=== PATIENT | male | born 1950 | race Caucasian/White ===

== ENCOUNTER 2019-06-04 14:45 | Outpatient (CLI) | payer MEDICARE, SELFPAY ==
--- NOTE | 2019-06-04 11:00 | DI.RAD_ITS ---
SYMPTOM/DIAGNOSIS: CALCULUS OF KIDNEY, N20.0, F/U KUB: Comparison is made with 05/06/18. There are calcifications seen overlying the left renal shadow. This may represent nephrolithiasis. No other urinary tract calculi are identified. The lung bases are clear. There are surgical clips in the right upper quadrant of the abdomen suggesting prior cholecystectomy. Degenerative changes are seen in the hips and lumbar spine. IMPRESSION: Calcifications overlying the left renal shadow which may represent nephrolithiasis.
== END 2019-06-04 15:05 ==
PROVIDERS: Visit Provider Urology
DX: N20.0 Calculus of kidney (principal)
CPT/HCPCS: 99213; 74018

== ENCOUNTER 2019-07-24 11:16 | Outpatient (CLI) | payer MEDICARE, SELFPAY ==
[2019-07-24 11:54] LABS: Bilirubin Negative (Negative); Blood Moderate (Negative); Clarity Sl Cloudy (Clear); Glucose 100 mg/dL (Negative); Ketones Trace mg/dL (Negative); Leukocyte Esterase Moderate (Negative); Nitrite Negative (Negative); Urobilinogen 0.2 EU/dL (Up TO 0.2)
[2019-07-24 12:29] LABS: Epithelial Cells Few HPF (Negative); RBC >50 (0-2); WBC >50 HPF (0-5)
[2019-07-24 12:30] LABS: Bacteria Moderate HPF (Negative); C & S Indicated? Yes; Casts Negative LPF (Negative); Crystals Negative HPF (Negative); Mucus Negative (Negative)
== END 2019-07-24 11:36 ==
PROVIDERS: PCP Internal Medicine; Visit Provider Urology
DX: R31.9 Hematuria, unspecified (principal)
CPT/HCPCS: 87077; 81003; 81015; 87086; 87186

== ENCOUNTER → 2019-07-27 10:33 | Outpatient (BNVA) | payer MEDICARE, SELFPAY | PROVIDERS: PCP Internal Medicine; Visit Provider Nurse Practitioner Gerontology | DX: N39.0 Urinary tract infection, site not specified (principal); B96.29 Other Escherichia coli [E. coli] as the cause of diseases classified elsewhere | CPT/HCPCS: 99213 ==

== ENCOUNTER 2019-08-12 13:13 | Outpatient (CLI) | payer MEDICARE, SELFPAY | END 2019-08-12 13:33 | PROVIDERS: PCP Internal Medicine; Visit Provider Urology | DX: R39.15 Urgency of urination (principal) | CPT/HCPCS: 87086 ==

== ENCOUNTER 2019-08-26 15:23 | Outpatient (REF) | payer MEDICARE, SELFPAY | END 2019-08-26 15:43 | LOC: LBN 15:23 | PROVIDERS: PCP Internal Medicine; Visit Provider Urology | DX: R31.9 Hematuria, unspecified (principal) | CPT/HCPCS: 87086 ==

== ENCOUNTER 2019-09-07 02:23 | Outpatient (CLI) | payer MEDICARE, SELFPAY ==
--- NOTE | 2019-09-07 14:53 | DI.US_ITS ---
EXAM: US RENAL CLINICAL HISTORY: FLANK PAIN IN A PT WITH HX OF STONES, N20.0, CALCULUS OF KIDNEY, ABDOMINAL PAIN, R 10.9 TECHNIQUE: Ultrasound performed using standard protocol. COMPARISON: RENAL COLIC WO CONTRAST from 11/29/2015 XR ABDOMEN FLAT PLATE from 06/04/2019 FINDINGS: The right kidney measures 10.2 cm in length. No right-sided renal calculi or hydronephrosis is seen. The parenchymal thickness and echogenicity appear normal. There are 2 small cysts seen in the left kidney. There is a 4 millimeter nonobstructing stone seen near the mid left kidney. The prevoid rubén dder volume measures 351 cc. The postvoid residual is 6 cc. The ureteral jets were not visualized. The prostate was not. IMPRESSION: A 4 millimeter nonobstructing stone in the mid left kidney. Small left renal cysts. No evidence of hydronephrosis.
== END 2019-09-07 02:43 ==
PROVIDERS: PCP Internal Medicine; Visit Provider Nurse Practitioner Gerontology
DX: N20.0 Calculus of kidney (principal); R10.32 Left lower quadrant pain; N28.1 Cyst of kidney, acquired
CPT/HCPCS: 76770

== ENCOUNTER 2019-09-08 10:10 | Outpatient (REF) | payer MEDICARE, SELFPAY | END 2019-09-08 10:30 | LOC: LBN 10:10 | PROVIDERS: PCP Internal Medicine; Visit Provider Urology | DX: R30.0 Dysuria (principal) | CPT/HCPCS: 87077; 87086; 87186 ==

== ENCOUNTER 2019-09-23 13:47 | Outpatient (REF) | payer MEDICARE, SELFPAY | END 2019-09-23 14:07 | LOC: LBN 13:47 | PROVIDERS: PCP Internal Medicine; Visit Provider Urology | DX: R30.0 Dysuria (principal) | CPT/HCPCS: 87086 ==

== ENCOUNTER 2019-09-30 13:57 | Outpatient (REF) | payer MEDICARE, SELFPAY | END 2019-09-30 14:17 | LOC: LBN 13:57 | PROVIDERS: PCP Internal Medicine; Visit Provider Physician Assistant Medical | DX: N39.0 Urinary tract infection, site not specified (principal) | CPT/HCPCS: 87077; 87086; 87186 ==

== ENCOUNTER 2019-11-11 11:03 | Outpatient (CLI) | payer OTHER, SELFPAY ==
[2019-11-11 11:39] LABS: Bilirubin Negative (Negative); Blood Negative (Negative); Clarity Clear (Clear); Glucose 500 mg/dL (Negative); Ketones Trace mg/dL (Negative); Leukocyte Esterase Negative (Negative); Nitrite Negative (Negative); Specific Gravity >= 1.030 (1.005-1.025); Urobilinogen 0.2 EU/dL (Up TO 0.2)
== END 2019-11-11 11:23 ==
PROVIDERS: PCP Internal Medicine; Visit Provider Urology
DX: N39.0 Urinary tract infection, site not specified (principal)
CPT/HCPCS: 81003; 87086

== ENCOUNTER 2019-12-07 14:55 | Outpatient (REF) | payer OTHER, SELFPAY | END 2019-12-07 15:15 | LOC: LBN 14:55 | PROVIDERS: PCP Nurse Practitioner Gerontology; Visit Provider Nurse Practitioner Gerontology | DX: R31.0 Gross hematuria (principal) | CPT/HCPCS: 87077; 87086; 87186 ==

== ENCOUNTER 2019-12-28 11:53 | Outpatient (CLI) | payer OTHER, SELFPAY | END 2019-12-28 12:13 | PROVIDERS: PCP Nurse Practitioner Gerontology; Visit Provider Urology | DX: N39.0 Urinary tract infection, site not specified (principal) | CPT/HCPCS: 87086 ==

== ENCOUNTER 2020-06-27 01:17 | Outpatient (CLI) | payer OTHER, SELFPAY ==
--- NOTE | 2020-06-27 09:31 | DI.RAD_ITS ---
EXAM: XR ABDOMEN FLAT PLATE CLINICAL HISTORY: Monitoring renal stones,Z87.442,PERSONAL H/O, [id number] TECHNIQUE: COMPARISON: CR XR ABDOMEN FLAT PLATE from 06/04/2019 FINDINGS: Two views were obtained. Vascular clips noted in right upper quadrant consistent with prior cholecys tectomy. Faint calculi are noted overlying the lower pole of the left kidney, maximal diameter about 6 millimeters. No additional urinary tract calcification seen. No gross interval change from radio graphs May 2019 allowing for differences in technique. IMPRESSION: Presumed left renal calculi. No other significant findings. RADIATION DOSE DELIVERED: Total DLP
== END 2020-06-27 01:37 ==
PROVIDERS: PCP Internal Medicine; Visit Provider Nurse Practitioner Gerontology
DX: N20.0 Calculus of kidney (principal); Z87.442 Personal history of urinary calculi
CPT/HCPCS: 74018

== ENCOUNTER 2020-08-08 14:18 | Outpatient (CLI) | payer MEDICARE, SELFPAY ==
[2020-08-10 19:25] LABS: Patient Race White; SARS-CoV-2 RNA Undetected (Undetected); SARS-CoV-2 Specimen Source Nasal
== END 2020-08-08 14:38 ==
PROVIDERS: PCP Internal Medicine; Visit Provider Family Medicine
DX: Z11.59 Encounter for screening for other viral diseases (principal)
CPT/HCPCS: U0003

== ENCOUNTER 2020-10-18 08:46 | Outpatient (CLI) | payer MEDICARE, SELFPAY ==
[2020-10-19 19:30] LABS: COVID-19 RT-PCR UVMMC Result Negative (Negative)
== END 2020-10-18 09:06 ==
PROVIDERS: PCP Internal Medicine; Visit Provider Internal Medicine
DX: R05 Cough (principal)
CPT/HCPCS: U0003

== ENCOUNTER → 2021-06-26 02:39 | Outpatient (CLI) | payer MEDICARE, SELFPAY ==
--- NOTE | 2021-06-26 07:30 | DI.RAD_ITS ---
Exam(s) XR ABDOMEN FLAT PLATE EXAM: 2D digital imaging was performed. CLINICAL HISTORY: Monitoring L. renal calculi, Z87.462. COMPARISON: CT RENAL COLIC WO CONTRAST from 11/29/2015 CT RENAL COLIC WO CONTRAST from 11/29/2015 CR XR ABDOMEN FLAT PLATE from 06/27/2020 TECHNIQUE: Supine views of the abdomen performed. FINDINGS: BOWEL GAS PATTERN: Nondistended. CALCIFICATIONS: 3 x 5 millimeter stone lower pole left kidney. OSSEOUS STRUCTURES: Normal for age. OTHER FINDINGS: Status post cholecystectomy. No organomegaly. IMPRESSION: 1. Nonobstructive bowel gas pattern. 2. 3 x 5 millimeter stone lower pole left kidney. DATA REPOSITORY: RADIATION DOSE DELIVERED:
== END ==
PROVIDERS: PCP Internal Medicine; Visit Provider Nurse Practitioner Gerontology
DX: Z87.442 Personal history of urinary calculi (principal); N20.0 Calculus of kidney
CPT/HCPCS: 74018

== ENCOUNTER 2022-01-04 16:08 | Outpatient (REF) | payer MEDICARE, SELFPAY ==
[2022-01-04 21:34] LABS: Abs Immature Grans 0.05 10^3/uL (0.0-0.06); Absolute Basophil Count 0.06 10^3/uL (0.0-0.2); Absolute Eosinophil Count 0.24 10^3/uL (0.0-0.7); Absolute Lymphocyte Count 2.41 10^3/uL (1.2-3.4); Absolute Monocyte Count 0.78 10^3/uL (0.1-0.8); Absolute Neutrophil Count 6.51 10^3/uL (1.2-6.7); Basophils % 0.6; Eosinophils % 2.4; HCT 46.5 % (40.0-50.0); Immature Grans % 0.5; MCH 31.8 pg (27.0-33.0); MCHC 34.4 % (32.0-36.0); MCV 92.4 fL (80-95); MPV 9.9 fL (8.0-11.0); Monocytes % 7.8; Neutrophils % 64.7; Nucleated RBC 0 %; Platelet Count 321 10^3/uL (130-400); RBC 5.03 10^6/uL (4.36-5.78); RDW 12.4 % (11.8-14.1); WBC 10.05 10^3/uL (4.4-10.8)
[2022-01-04 21:40] LABS: ALT 65 U/L (16-63); AST 20 U/L (15-37); Albumin 3.9 g/dL (3.4-5.0); Alkaline Phosphatase 54 U/L (46-116); Anion Gap 10.3 mmol/L (3-11); BUN 16 mg/dL (7-18); Bilirubin, Total 0.5 mg/dL (0.2-1.0); CO2 25.7 mmol/L (21.0-32.0); Calcium 9.2 mg/dL (8.5-10.1); Chloride 100 mmol/L (98-107); Glucose 190 mg/dL (74-106); Potassium 4.6 mmol/L (3.5-5.1); Sodium 136 mmol/L (136-145); Total Protein 7.3 g/dL (6.4-8.2)
[2022-01-04 22:13] LABS: C Diff PCR Negative (Negative)
[2022-01-06 11:15] LABS: Campylobacter PCR Negative (Negative); Salmonella PCR Negative (Negative); Shiga Toxin PCR Negative (Negative); Shigella/Enteroinvasive Ecoli Negative (Negative)
[2022-01-06 13:44] LABS: COVID-19 RT-PCR UVMMC Result Negative (Negative)
== END 2022-01-04 16:09 | disposition home or self-care (01) ==
LOC: LBN 16:08
PROVIDERS: PCP Internal Medicine; Visit Provider Physician Assistant Medical
DX: R19.7 Diarrhea, unspecified (principal); Z20.822 Contact with and (suspected) exposure to COVID-19
CPT/HCPCS: 80053; 87329; 87493; 87505; U0003; 83630; 85025; 87177

== ENCOUNTER → 2022-02-08 15:05 | Outpatient (BNVA) | payer MEDICARE, SELFPAY | PROVIDERS: PCP Internal Medicine; Referring Provider Internal Medicine; Visit Provider Physical Therapy Assistant | DX: Z12.11 Encounter for screening for malignant neoplasm of colon (principal); Z80.0 Family history of malignant neoplasm of digestive organs ==

== ENCOUNTER 2022-02-23 06:59 | Day surgery (SDC) | payer OTHER, SELFPAY ==
--- NOTE | 2022-02-22 16:19 | W.COLOREPORT ---
Colonoscopy Report Date of procedure: 02/23/22 Pre-op diagnosis general: adenomatous polyps Post-op diagnosis procedure note: other (Adenomatous polyps/diverticula) Surgeon: Maria Luisa Sandhu Anesthesia Type: Other (The scope was done with no sedation at patient's request) Estimated blood loss (mL): 1 Pathology: other Complications: None Disposition: same day Prep: Miralax/Dulcolax Retraction Time: 9 Procedure Description: After informed consent was obtained the patient was taken to the procedure room and placed in a left decubitous position. Monitors were applied and a time out was done. The patients name, date of , procedure, allergies to medications and metal in their body was reviewed. Patient did not want sedation, and the procedure was done with no medications. Anesthesia was still present in the room to monitor airway and vital signs. External exam was normal. Internal exam revealed a normal sphincter tone and no palpable masses. The prostate grossly normal The scope was then introduced and retrofelexed. No internal hemorrhoids were identified. The scope was then advanced to the cecum without difficulty. The TI and appendiceal orifice were identified. The prep was the BPS 3 in all segments for total of 9. The scope was then slowly retracted over 10 minutes back into the rectum. he had 2 small, 5mm flat polyps, 1 at 30 cm and 1 at 50 cm. These are removed with a cold biting forcep. All specimen is retrieved and no bleeding is noted. He has minor diverticular disease confined to the sigmoid colon, with no signs of active bleeding or infection. The mucosa is pink and healthy with a normal vascular pattern. Was removed and the patient was woken up and taken back to Same day surgery in stable condition. The patient tolerated the procedure well and there were no immediate complications. Follow up: We will see what the path report shows, and if we want him to repeat do colonoscopy again, unless he develop changes in bowel habits or other new gastrointestinal complaints.
--- NOTE | 2022-02-22 16:20 | PDOC.DSDIS_ITS ---
Discharge Plan Disposition Patient Disposition: HOME Condition: Good Discharge Details Reason For Visit: Colon scope Attending Provider: Maria Luisa Sandhu Primary Care Provider: Pravin Hunter Home Meds and New Rx's Prescriptions: Continued Lantus Solostar U-100 Insulin 100 unit/mL (3 mL) insulin pen 42 unit subcut DAILY multivitamin 1 EACH tablet 1 ea PO DAILY (DME) blood-glucose meter [OneTouch UltraMini] 1 EACH kit 1 ea Miscellaneous BID Qty: 1 Rx Instructions: 250.00 to maintain A1C below 7.0 (DME) lancets [OneTouch SureSoft Lancing Dev] 1 EACH misc 1 ea Miscellaneous DAILY Qty: 1 (DME) OneTouch Ultra Test 1 EACH strip 1 ea Miscellaneous DAILY Qty: 100 Rx Instructions: For DM E11.9 to maintain A1C <7 aspirin 81 MG tablet,chewable 81 mg PO DAILY glipizide 5 mg tablet 5 mg PO BID atorvastatin 20 mg tablet 20 mg PO DAILY losartan 50 mg tablet 50 mg PO DAILY pantoprazole 40 mg tablet,delayed release (DR/EC) 40 mg PO DAILY dorzolamide-timolol 22.3-6.8 mg/mL drops 1 drp ophthalmic (eye) Q12H triamcinolone acetonide 0.1 % cream 1 applic topical DAILY camphor-menthol 5.1-5.1 % cream 1 applic topical QHS PRN acetaminophen [Tylenol] 325 MG tablet 1 - 3 tab PO TID PRN ibuprofen 200 MG tablet 200 - 600 mg PO TID PRN Label Comments: 12/07/15 Pt states taking TID. PG metformin 1,000 mg tablet,ER sheeba.retention 24 hr 1,000 mg PO DAILY hydrocortisone 30 GM cream 1 gm Topical BID 7 Days Qty: 1 0RF Rx Instructions: Apply cream to itchy areas of hands twice daily for 1 week. Ozempic 0.25 mg or 0.5 mg(2 mg/1.5 mL) pen injector 0.25 - 0.5 mg SUBCUT DIRECTED Label Comments: once weekly injection Discontinued polyethylene glycol 3350 17 gram/dose powder 238 g PO ONCE Qty: 238 0RF Rx Instructions: take per colonoscopy instructions bisacodyl [Dulcolax (bisacodyl)] 5 mg tablet,delayed release (DR/EC) 5 mg PO ONCE Qty: 4 0RF Rx Instructions: take per colonoscopy instructions Discharge Instructions Additional Instructions: DSU Colonoscopy Post- Op Instructions Instructions for Everyone who is given Anesthesia: For your safety, please do the following for the next twenty-four (24) hours: *Do Not operate a motor vehicle (car, truck, motorcycle, etc.) *Do Not drink alcoholic beverages or use any recreational drugs for the first 24 hours or while taking pain medications. The medications in your body may have a reaction that can be dangerous. *Do Not make any important decisions or sign any important papers. Findings:-Diverticula-sure you are moving your bowels on a regular basis and not straining to go to the bathroom, Polyps- Follow up: My office will send a letter in 2 to 3 weeks time detailing as to what type of polyps they are and if we want you to repeat the colonoscopy again. 1. No lifting over 20 pounds or strenuous activity for the first 24 hours after your procedure. After 24 hours there are no restrictions on your activity but you may feel fatigued for a few days. 2. After you arrive home you may have a light meal and return to your normal diet as you can tolerate it without feeling sick to your stomach. 3. You may have a bloated, gaseous feeling in your belly (abdomen) after a colonoscopy. Passing gas and belching will help. Walking or lying down on your left side with your knees flexed may relieve the discomfort. Call the office at [phone] (Office) or [phone] (Hospital) right away if you notice any of the following: a.Vomiting of blood or ?coffee ground stools?. b.Rectal bleeding 1Tbsp, blood clots or continuous bleeding. c.Severe belly (abdominal) pain. d.A hard distended belly (abdomen) and an inability to pass gas. 4. Please don?t expect to have a normal BM (bowel movement) for 2-3 days after your procedure. 5. If there are questions regarding the findings of your procedure, please contact your doctor 6. If you are unable to contact your doctor with a problem, contact the hospital at [phone]. 7. Continue all your regular medications unless directed otherwise. I understand the above instructions and have no questions. Signature of Patient or Adult Escort Name of Responsible Adult Escort Signature of Nurse Date/Time Activity:: See above Diet:: See above Discharge Orders Discharge Orders: Discharge Order (Routine); Ordered 02/22/22 Ordered By: Maria Luisa Sandhu
--- NOTE | 2022-02-23 | BOWEL_PTH ---
PATIENT: Brandon Peña I LOC: [facility] U#:[id number] AGE/SX: 71/M ROOM: RE02/23/[address]: Maria Luisa Sandhu : 1950 BED: DIS: 02/23/2022 SPEC #: [id number] RECD: 02/23/22 09:52 STATUS: EMORY REQ #: [id number] BRANDON: 02/23/22 00:[address]: Maria Luisa Sandhu DEPT: Surgical Specimen RECD BY: Jaimie Montelongo ENTERED: 02/23/22 09:53 SP TYPE: Bowel OTHR DR: Pravin Hunter Tissues: 1 - BIOPSY BOWEL 2 - BIOPSY BOWEL Procedures: GROSS AND MICRO LEVEL 4 Comments: [id number]
[2022-02-23 07:35] VITALS: BP 141/73; PULSE 74; RESP 15; TEMP 36.6; O2SAT 97
[2022-02-23] MEDS: Lactated Ringers 1,000 ML 80 ML IV (07:53)
--- NOTE | 2022-02-23 08:47 | W.ANESPRE ---
General Info Date of Service Date Performed: 02/23/22 Height: 5 ft 6 in Weight: 88.9 kg Body Mass Index (BMI): 31.6 Surgical Procedure: Operation Date: 02/23/22 08:50 Proposed Procedure Side Surgeon washington Sandhu, DO Meds Allergies and Home Medications Allergies Allergy/AdvReac Type Severity Reaction Status Date / Time Penicillins Allergy Severe ANAPHYLAXIS, Verified 02/23/22 07:31 HIVES WHITE FACED HORNET Allergy Unknown SKIN Uncoded 02/23/22 07:31 POISON REACTION Home Medication Medication Instructions Recorded multivitamin 1 ea PO DAILY 01/29/13 blood-glucose meter (Meteo-LogicTouch ##1 05/21/14 UltraMini kit) acetaminophen 325 mg tablet 1 - 3 tab PO TID PRN 12/07/15 (Tylenol) ibuprofen 200 mg tablet 200 - 600 mg PO TID PRN 12/07/15 lancets (Meteo-LogicTouch SureSoft Lancing ##1 07/03/16 Devices) blood sugar diagnostic (OneTouch #100 strips 01/15/17 Ultra Test strips) aspirin 81 mg chewable tablet 81 mg PO DAILY 04/23/17 hydrocortisone 2.5 % topical cream 1 gm topical BID 7 days #1 tube 04/10/18 atorvastatin 20 mg tablet 20 mg PO DAILY 05/31/21 glipizide 5 mg tablet 5 mg PO BID 05/31/21 losartan 50 mg tablet 50 mg PO DAILY 05/31/21 camphor-menthol 5.1 %-5.1 % 1 applic topical QHS PRN 06/05/21 topical cream dorzolamide 22.3 mg-timolol 6.8 1 drp ophthalmic (eye) Q12H 06/05/21 mg/mL eye drops pantoprazole 40 mg tablet,delayed 40 mg PO DAILY 06/05/21 release triamcinolone acetonide 0.1 % 1 applic topical DAILY 06/05/21 topical cream metformin 1,000 mg 24 hr 1,000 mg PO DAILY 06/26/21 tablet,extended release insulin glargine 100 unit/mL (3 42 unit subcut DAILY 02/08/22 mL) subcutaneous pen (Lantus Solostar U-100 Insulin) semaglutide 0.25 mg or 0.5 mg (2 0.25 - 0.5 mg subcut DIRECTED 02/21/22 mg/1.5 mL) subcutaneous pen injector (Ozempic) Current Visit Medications: Current Medications Generic Name Dose Route Start Last Admin Trade Name Freq PRN Reason Stop Dose Admin Ringer's Solution 1,000 mls @ 80 mls/hr 02/23/22 06:00 02/23/22 07:53 IV 03/24/22 23:59 80 mls/hr INFUSION PHILLIP Administration IV Miscellaneous Supplies 1 each 02/23/22 06:00 Iv Access IV 03/24/22 23:59 DIRECTED PHILLIP Ondansetron HCl 4 mg 02/22/22 16:18 Ondansetron 4 Mg/2 Ml Vial IVP Q4H PRN PRN Nausea / Vomiting Sodium Chloride 0 ml 02/23/22 06:00 Normal Saline Flush 10 Ml Syr IV 03/24/22 23:59 PRN PRN Sodium Chloride 0 ml 02/23/22 06:00 Normal Saline 10 Ml Vial IJ 03/24/22 23:59 DIRECTED PRN Sterile Water 0 ml 02/23/22 06:00 Water,Injection,Sterile 10 Ml Vial IJ 03/24/22 23:59 DIRECTED PRN PFSH Active Problems Active Problems: Problem Status Onset Code Benign neoplasm of colon 04/21/12 D12.6 Type 2 diabetes mellitus 05/11/14 E11.9 Rawson cardiac risk >20% in next 10 years 02/29/16 Z91.89 Severe obesity (BMI 35.0-39.9) with comorbidity 02/29/16 E66.01 Sleep apnea 02/11/14 G47.30 Medical History Medical History Acute gastritis Chest pain Pt. states he wore a monitor for 2 weeks, and found nothing Chronic nonalcoholic liver disease (01/22/12) Fatty liver, incidental finding on CT 09/2011 Hearing loss (01/22/12) B/L hearing aids Hyperlipidemia Increased glucose level (05/11/14) Kidney stone (01/22/12) 2013: Calcium oxalate nephrolithiasis s/p R URS/laser litho Dr. Pichardo 2014: 7mm L kidney stone; stable 2015: 7mm L kidney stone; stable Nonalcoholic steatohepatitis Obesity, unspecified (03/25/12) Tremor Medical History Comments:: Declines anesthesia for this procedure Surgical History Surgical History Cholecystectomy Colonoscopy (05/30/15) Cystoscopy (12/08/15) dr. menchaca H/O vasectomy Rotator Cuff Repair (02/12/18) NEER ACROMIOPLASTY/EXCISION DISTAL CLAVICLE/DR. MCKEON Ureteroscopy, EHL, or Laser Lithotripsy (12/08/15) Tobacco Smoking/Tobacco Use Status: Never Alcohol Alcohol Intake: current Alcohol intake frequency: holidays/special occasions only Substance Use Substance use: Never Substance use type: does not use Vital Signs and Lab Results Vital Signs Most Recent Vital Signs in EMR: Most Recent Vital Signs Temp Pulse Resp BP Pulse Ox 36.6 C 74 15 141/73 H 97 02/23/22 07:35 02/23/22 07:35 02/23/22 07:35 02/23/22 07:35 02/23/22 07:35 Point of Care Results Point of Care Results: Finger Stick Blood Glucose 158 02/23/22 07:46 Lab Results Blood Type / Crossmatch: No Data to Display Complete Blood Count: No Data to Display Complete Metabolic Panel: No Data to Display Liver Function Panel: No Data to Display Coagulation Panel: No Data to Display Cardiac Panel: No Data to Display Arterial Blood Gas: No Data to Display Venous Blood Gas: No Data to Display Pancreas Panel: No Data to Display Thyroid Panel: No Data to Display Infectious Disease: No Data to Display Blood Cultures: No Data to Display Toxicology Panel: No Data to Display Anesthesia Assessment and Plan Anesthesia History Personal History: No History of Anesthesia Complications Family History: No Family History of Anesthesia Complications Exercise Tolerance Exercise Tolerance: Metabolic Equivalents>4 Pertinent Negatives Pertinent Negatives: No Symptoms of GERD, No Major Cardiovascular Symptoms or Complaints (Negative stress test 2016), No Major Pulmonary Symptoms or Complaints and No History of CVA/TIA Cardiac & Pulmonary Exam Cardiac Exam: Normal S1/S2 Heart Sounds Pulmonary Exam: Clear Bilateral Breath Sounds Implantable Cardiac Device Does patient have a Pacemaker or an ICD?: No Airway Exam Known Difficult Airway: No Mallampati Class: 1 Mouth Opening: Normal (> 3cm) Thyromental Distance: Greater than 3 cm Neck Range of Motion: Full ROM Neck Circumference: Normal Teeth Condition: Normal Dentition ASA Classification ASA Score: ASA 2 Emergency Case?: No NPO Status NPO Status: NPO Clears >2 hours, Solids >8 hours Anesthesia Plan Resuscitation Status: Full Code Anesthesia Technique: General Anesthesia Airway Planned: Natural Airway Monitors Used: Standard Monitors
[2022-02-23 08:50] VITALS: BMI 31.6
[2022-02-23 09:26] VITALS: BP 141/70; PULSE 74; RESP 18; TEMP 36.5; O2SAT 98
--- NOTE | 2022-02-23 09:26 | W.ANESPOSTOP ---
Postoperative Evaluation Date, Time and Location Date Performed: 02/23/22 Time Performed: 08:26 Patient Location: Day Surgery Unit Vital Signs Most Recent Imported Vital Signs: Most Recent Vital Signs Temp Pulse Resp BP Pulse Ox 36.6 C 74 15 141/73 H 97 02/23/22 07:35 02/23/22 07:35 02/23/22 07:35 02/23/22 07:35 02/23/22 07:35 Most Recent Manually Entered Vital Signs: Adult Blood Pressure: 141/70 Heart Rate: 74 Respirations: 10 Oxygen Saturation (%): 97 Temperature (C): 36.4 C Pain Score (0-10 Scale): 0 Pain Score Most Recent Pain Score: Most Recent Pain Score Pain Level 0 02/23/22 07:35 Assessment Mental Status: Awake (Alert & Oriented to Patient Baseline) Airway and Respiratory Function: Patent airway with normal (patient baseline) respiratory exam Cardiovascular Function: Hemodynamically Stable Hydration Status: Adequately Hydrated Nausea & Vomiting: No Nausea or Vomiting Pain: Pt. Denies Any Pain Peripheral Nerve Block: Patient did not receive a nerve block Postoperative Comments:: Pt received no medications
[2022-02-23 09:27] VITALS: BP 141/70; PULSE 74; RESP 10; TEMPC 36.4; O2SAT 97
[2022-02-23 09:50] VITALS: BP 149/77; PULSE 85; RESP 16; TEMP 36.6; O2SAT 97
== END 2022-02-23 10:05 | disposition home or self-care (01) ==
LOC: SUR 07:00
PROVIDERS: PCP Internal Medicine; Visit Provider Surgery
PROC: 0DJD8ZZ Inspection of Lower Intestinal Tract, Via Natural or Artificial Opening Endoscopic (ICD-10-PCS; CPT 45378; principal; 2022-02-23 08:45)
DX: Z12.11 Encounter for screening for malignant neoplasm of colon (principal); K63.5 Polyp of colon; Z86.010 Personal history of colon polyps; G47.30 Sleep apnea, unspecified; E11.9 Type 2 diabetes mellitus without complications; K57.30 Diverticulosis of large intestine without perforation or abscess without bleeding
CPT/HCPCS: 45380; 88305